=== PATIENT | female | born 1945 | race Caucasian/White ===

== ENCOUNTER 2025-03-28 18:25 | Emergency (ER) | payer MEDICARE, SELFPAY ==
[2025-03-28 18:32] VITALS: BP 124/76
[2025-03-28 19:44] VITALS: BP 171/69
--- NOTE | 2025-03-28 19:51 | ED.GENMED ---
History of Present Illness
General
Chief Complaint: Breathing Problem
Source: patient and family
Time Seen by Provider: 03/28/25 19:22
History of Present Illness
History of Present Illness:
80-year-old female presents to the emergency room complaining of cough, congestion, short of breath with exertion. Patient has been ill for the past 10 days or so. She was evaluated by her primary care provider who initially started her on an
antibiotic. She was not getting better so she was switched to Zithromax. She was also prescribed a course of methylprednisolone. She continues to cough and today used her pulse ox while she was walking. She noted that her heart rate went up and
her pulse ox dropped to 83% with exertion. She does have a history of smoking but quit 10 years ago. She denies any history of asthma or COPD. No fever. No nausea vomiting.
Phy Exam
Physical Exam
Physical Exam:
General: Awake, Alert, Oriented X3. No acute distress.
Vitals: unremarkable
Head: Atraumatic
Eyes: Pupils equal, EOMI
Throat: Airway intact, no exudates
Neck: Trachea midline
Lungs: Expiratory wheezing
Heart: Regular rate, no murmurs
Abd: Soft, Nontender, No pulsatile mass
Neuro: Nonfocal
Skin: Warm, dry, no rash
Extremities: pulses equal b/l, no edema
Scores
Heart Failure Risk
Heart Failure Risk Score: Not Applicable
Course
Orders/Labs/Results
Orders:
Orders
03/28/25 18:26
Electrocardiogram (*1) Urgent
Reason for Study: Shortness of Breath
EKG- Treatment ONCE
03/28/25 19:50
Ipratropium/Albuterol Sulfate [Duoneb] 3 ml INH R NOW STA
03/28/25 19:51
CR Chest - 2 Views Urgent
Comment:
Reason For Exam: cough, sob, hypoxia
03/28/25 19:56
Basic Metabolic Panel Urgent
COVID-19 Antigen Urgent
Source: Nasal Swab
Complete Blood Count/With Diff Urgent
Influenza A+B Rapid Molecular Urgent
ILAN Source: Nasal Swab
Specimen Description:
03/28/25 21:18
Ipratropium/Albuterol Sulfate [Duoneb] 3 ml INH R NOW STA
03/28/25 22:30
Prednisone [Deltasone] 50 mg PO NOW STA
Abnormal Lab Results
03/28/25
19:56
WBC 4.5 L 10^3/uL
(4.8-10.8)
RBC 3.76 L 10^6/uL
(4.20-5.40)
MCV 99.5 H fL
(81.0-99.0)
MCH 34.6 H pg
(27.0-31.0)
Absolute Lymphs (auto) 1.0 L 10^3/uL
(1.2-3.4)
Immature Gran % 0.7 H %
(0-0.5)
Chloride 109 H mmol/L
(98-107)
Glucose 110 H mg/dl
(70-99)
03/28/25 19:56
03/28/25 19:56
Vital Signs
Initial and Last Documented VS:
Initial Vital Signs
Temp Pulse Resp BP Pulse Ox
98.2 F 95 18 124/76 94
03/28/25 18:32 03/28/25 18:32 03/28/25 18:32 03/28/25 18:32 03/28/25 18:32
Last Documented Vital Signs
Temp Pulse Resp BP Pulse Ox
98.2 F 98 19 117/47 96
03/28/25 18:32 03/28/25 22:15 03/28/25 22:15 03/28/25 22:00 03/28/25 22:45
MDM/Problems Addressed
Differential Diagnosis Includes:
Pneumonia, acute bronchitis, COPD exacerbation, heart failure
MDM/Problems Addressed:
Patient presents with cough shortness of breath which has been present for the past 10 days. No improvement with a couple courses of antibiotics. He manage her exam shows some expiratory wheezing but decreased breath sounds diffusely. She was
treated with nebulized albuterol and Atrovent. She had significant improvement in aeration. Her cough improved. Chest x-ray shows no acute infiltrate. Patient continues to have some expiratory wheezing after treatment but again is feeling
better. She ambulated and continued to feel short of breath but feels comfortable going home. Will discharge her with both a prescription for metered-dose inhaler as well as albuterol liquid to use in the nebulizer which she has at home. Will
also start prednisone. She was given 50 mg here prescription for 40 mg a day for 4 more days. She has an appointment with pulmonary coming up which she should keep obviously
*Radiology
Radiology exam reviewed: preliminary read by ED provider (No acute infiltrate noted on my evaluation of the x-ray)
*Pulse Oximetry
SaO2: 97
Oxygen Mode of Delivery: Room air
Patient hypoxic: no
*EKG
Interpreted by ED Provider?: Yes
Heart Rate: 103
Rate: tachycardiac
Rhythm: sinus and PVC's
[place]: normal axis
Interval: normal interval
QRS Pattern: normal QRS
Ischemia: no ischemia
*Loan Review Analyst Interpretation
Rate: tachycardiac
Interpretation: abnormal
Heart Rate: 103
Rhythm: sinus tachycardia
*Critical Care Note
Total Time (30-74mins, 75-104mins- exclusive of procedures): Not Applicable
ED Attending Note
-
Portions of this chart may have been created with voice recognition software.� Occasional wrong word or��sound alike� substitutions may have occurred due to the inherent limitations of voice recognition software.
Discharge Plan
Departure
Patient Disposition: Home (Routine Discharge)
Date of Disposition: 03/28/25
Time of Disposition: 22:31
Patient with high blood pressure during this ER visit?: Yes
Condition: Good
Discharge Problem:
Acute bronchitis, Acute exacerbation of chronic obstructive pulmonary disease
Instructions: Acute Bronchitis, Adult (DC), Exacerbation of COPD (DC)
Prescriptions:
New
albuterol sulfate 2.5 mg /3 mL (0.083 %) solution for nebulization
2.5 mg inhalation QID 7 Days Qty: 84 0RF
albuterol sulfate [Ventolin HFA] 90 mcg/actuation HFA aerosol inhaler
2 puff inhalation Q6H PRN (Reason: shortness of breath or wheezing) Qty: 8.5 0RF
prednisone 20 mg tablet
40 mg PO DAILY Qty: 8 0RF
Referrals:
Rodger Garcia, [Family Provider, Family Practice]
Activity Restrictions/Additional Instructions:
Return to the emergency room if you feel your shortness of breath is getting worse. Follow-up with your junior project manager and resource management planner as scheduled.
Interventions
Interventions:
*Risk Screen - Suicide Last Done: 03/28/25 18:32
*General Assessment Last Done: 03/28/25 22:52
*Neglect/Abuse Screening Last Done: 03/28/25 22:52
*ED- Fall Risk Assessment Last Done: 03/28/25 22:52
*ED COVID-19 Vaccine History Last Done: 03/28/25 22:52
*Nursing Disposition Last Done: 03/28/25 22:52
ED- Cardiac Assessment Last Done: 03/28/25 19:47
ED- Pulmonary Assessment Last Done: 03/28/25 19:47
Discharge Date and Time
Discharge Date/Time: 03/28/25 22:58
Print Language: GREENLAND[place]
[2025-03-28 20:04] VITALS: BMI 25.0
[2025-03-28] MEDS: DUONEB 3 ML INH ×2 (20:04→21:34)
[2025-03-28 20:14] LABS: Hematocrit 37.4 % (37.0-47.0); Hemoglobin 13.0 g/dL (12.0-16.0); Mean Corp Hgb Conc. 34.8 g/dL (33.0-37.0); Mean Corpuscular Volume 99.5 fL (81.0-99.0); Nucleated Red Blood Cells % 0 %; Platelet Count 180 10^3/uL (130-400); Red Cell Dist. Width 13.0 % (11.5-14.5)
[2025-03-28 20:27] LABS: Blood Urea Nitrogen 17 mg/dl (7-17); Calcium 9.4 mg/dl (8.4-10.2); Carbon Dioxide 27 mmol/L (22-30); Chloride 109 mmol/L (98-107); Estimated Creatinine Clearance 39 ml/min; Glucose 110 mg/dl (70-99); Potassium 3.9 mmol/L (3.5-5.1); Sodium 142 mmol/L (135-145); eGFR > 60.00
[2025-03-28 20:34] LABS: COVID-19 Antigen Negative (Negative)
[2025-03-28 21:00] VITALS: BP 134/58
[2025-03-28 22:00] VITALS: BP 117/47
[2025-03-28] MEDS: DELTASONE 50 MG PO (22:48)
== END 2025-03-28 22:58 | disposition home or self-care (01) ==
LOC: EMR 18:25
PROVIDERS: EMERGENCY PHYSICIAN Emergency Medicine; FAMILY PHYSICIAN Student in an Organized Health Care Education/Training Program
DX: J20.9 Acute bronchitis, unspecified (principal); J44.0 Chronic obstructive pulmonary disease with (acute) lower respiratory infection; J44.1 Chronic obstructive pulmonary disease with (acute) exacerbation; Z87.891 Personal history of nicotine dependence; R03.0 Elevated blood-pressure reading, without diagnosis of hypertension; R00.0 Tachycardia, unspecified
CPT/HCPCS: 99284; 94640; 71046; 80048; 85025; 87502; 87811; 93005